=== PATIENT | male | born 1960 | race Caucasian/White ===

== ENCOUNTER 2021-11-10 04:44 | Emergency (ER) | payer BC ==
[2021-11-10 06:46] LABS: ALBUMIN 3.6 g/dl (3.4-5.0); BLOOD UREA NITROGEN 15.4 mg/dL (7-18); CALCIUM 9.2 mg/dL (8.5-10.1); CHLORIDE 107 mmol/L (98-107); CO2 26 mmol/L (21-32); GLUCOSE,RANDOM 107 mg/dL (74-106); SODIUM 141 mmol/L (136-145)
[2021-11-10 06:49] LABS: ALK PHOS 78 U/L (45-117); BILIRUBIN,TOTAL 0.6 mg/dL (0.2-1); CREATININE 0.8 mg/dL (0.55-1.3); SGOT/AST 15 U/L (15-37); SGPT/ALT 33 U/L (13-61); TOT PROT 6.8 g/dl (6.4-8.2)
[2021-11-10 06:51] LABS: BASO % 0.9 % (0-2.0); EOS % 2.6 % (0-4.5); HEMOGLOBIN 15.5 GM/dL (11.7-16.9); LYMPH % 34.4 % (8-40); MCH 30.8 pg (25.7-33.7); MCHC 34.6 g/dl (32.0-35.9); MEAN CELL VOLUME 89.2 fl (80-96); MEAN PLT VOLUME 6.6 fl (7.5-11.1); MONO % 7.7 % (3.8-10.2); NEUT % 54.4 % (42.8-82.8); PLATELET COUNT 278 10^3/uL (134-434); RBC 5.04 M/mm3 (4.00-5.60); RDW 14.1 % (11.9-15.9); WHITE BLOOD COUNT 8.9 K/mm3 (4.0-10.0)
[2021-11-10] MEDS ORDERED: AMPICILLIN NA/SULBACTAM NA 3 GM in SODIUM CHLORIDE 100 ML IVPB ONE (07:28)
[2021-11-10 10:07] VITALS: BP 147/95; PULSE 67; RESP 18
== END 2021-11-10 10:20 | disposition home or self-care (01) ==
LOC: JER 04:44
DX: H00.034 Abscess of left upper eyelid (principal)
CPT/HCPCS: 36415; 70481-TC; 80053; 85025; 99285-25